=== PATIENT | male | born 1975 | race Caucasian/White ===

== ENCOUNTER 2017-07-25 13:54 | Emergency (ER) | payer BC, OTHER ==
[2017-07-25 14:17] VITALS: BP 121/75; PULSE 79; RESP 18; TEMP 97.3
--- NOTE | 2017-07-25 14:44 | XR ---
EXAMINATION TYPE: XR wrist complete RT DATE OF EXAM: 07/25/2017 COMPARISON: NONE HISTORY: Pain TECHNIQUE: Four views submitted. FINDINGS: The osseous structures are intact. The joint spaces are preserved and there is no acute fracture or dislocation. IMPRESSION: 1. No definite acute fracture or dislocation if symptoms persist, follow-up study in 7 to 10 days wo uld be suggested
--- NOTE | 2017-07-25 14:45 | ED ---
General Adult HPI - General Chief complaint: Extremity Injury, Upper Stated complaint: hand/wrist injury-[facility] Time Seen by Provider: 07/25/17 14:04 Source: patient, RN notes reviewed Mode of arrival: ambulatory Limitations: no limitations - History of Present Illness Initial comments: Patient for a 42-year-old male who presents emergency room today with a chief complaint of an injury to the right wrist that occurred yesterday while at work. He does admit that he was lifting a heavy piece and felt something pop in the right wrist area. He does admit that he's had some pain with certain movements today. He was worried about a fracture as he broke this wrist in the past. He denies any other complaints or associated symptoms. Patient denies any recent fever, chills, shortness of breath, chest pain, back pain, abdominal pain, nausea or vomiting, numbness or tingling, headaches or visual changes, or any other complaints. Review of Systems ROS Statement: Those systems with pertinent positive or pertinent negative responses have been documented in the HPI. ROS Other: All systems not noted in ROS Statement are negative. Past Medical History Past Medical History: No Reported History Additional Past Medical History / Comment(s): r wrist fracture History of Any Multi-Drug Resistant Organisms: None Reported Past Surgical History: No Surgical Hx Reported Past Psychological History: No Psychological Hx Reported Smoking Status: Current every day smoker Past Alcohol Use History: Occasional Past Drug Use History: None Reported General Exam - General Exam Comments Initial Comments: General: The patient is awake and alert, in no distress, and does not appear acutely ill. Neck: The neck is supple, there is no tenderness or JVD. Cardiovascular: There is a regular rate and rhythm. No murmur, rub or gallop is appreciated. Respiratory: Lungs are clear to auscultation, respirations are non-labored, breath sounds are equal. No wheezes, stridor, rales, or rhonchi. Musculoskeletal: Normal appearance of right wrist shows full range of motion or sensation intact. Pulses equal bilaterally 2+. Neurological: A&O x 3. CN II-XII intact, There are no obvious motor or sensory deficits. Coordination appears grossly intact. Speech is normal. Skin: Skin is warm and dry and no rashes or lesions are noted. Psychiatric: Normal mood and affect. Limitations: no limitations Course Vital Signs 07/25/17 14:03 Temperature 97.3 F L Pulse Rate 79 Respiratory 18 Rate Blood Pressure 121/75 O2 Sat by Pulse 99 Oximetry Medical Decision Making - Medical Decision Making Patient's x-ray reviewed shows no acute fracture dislocation. Results were discussed with the patient. Patient advised to follow-up in 7-10 days if symptoms persist for repeat x-rays. Disposition Clinical Impression: Right wrist sprain Disposition: HOME SELF-CARE Condition: Good Instructions: Wrist Sprain (ED) Additional Instructions: Please continue to ice elevate the affected area and use ibuprofen for pain. Please follow-up in 7-10 days if symptoms persist for repeat x-ray. Referrals: None,Stated [Primary Care Provider] - 1-2 days Time of Disposition: 15:13
== END 2017-07-25 15:34 | disposition home or self-care (01) ==
LOC: EC 13:54
DX: S63.501A Unspecified sprain of right wrist, initial encounter (principal); F17.200 Nicotine dependence, unspecified, uncomplicated; Z87.81 Personal history of (healed) traumatic fracture; X50.0XXA Overexertion from strenuous movement or load, initial encounter; Y92.69 Other specified industrial and construction area as the place of occurrence of the external cause; Y93.89 Activity, other specified; Y99.0 Civilian activity done for income or pay
CPT/HCPCS: 99283

== ENCOUNTER → 2022-06-11 | Outpatient (CLI) | payer BC ==
--- NOTE | 2022-06-12 12:11 | XR ---
EXAMINATION TYPE: XR cervical spine 5 views comp DATE OF EXAM: 06/11/2022 COMPARISON: None HISTORY: 47-year-old male M54.2, cervicalgia TECHNIQUE: 5 views FINDINGS: No predental space widening or prevertebral soft tissue swelling. Mild degenerative disc disease with mild disc space narrowing and endplate spondylosis C6-C7. Alignment is maintained. Mild uncovertebra l and facet joint arthropathy lower cervical spine. Changes result in mild bony neural foraminal narr owing on the right at C6-C7. More moderate on the left at C6-C7. Normal odontoid view. IMPRESSION: [id number] focal spondylotic change especially C6-C7. This results in moderate bony neuroforami nal narrowing on the left and mild on the right at this level. No malalignment.
== END | disposition home or self-care (01) ==
LOC: RADXRMAIN 16:35
PROVIDERS: ATTEND Family Medicine
DX: M47.812 Spondylosis without myelopathy or radiculopathy, cervical region (principal); M99.71 Connective tissue and disc stenosis of intervertebral foramina of cervical region
CPT/HCPCS: 72050